=== PATIENT | male | born 1980 | race Caucasian/White ===

== ENCOUNTER 2016-12-20 15:10 | Emergency (ER) | payer MEDICARE ==
[~2016-12-20] VITALS: Ht 170.2 cm; Wt 72.5 kg
[2016-12-20] MEDS ORDERED: ChlordiazePOXIDE HCL 25 MG CAPSULE PO ONE (20:00)
[2016-12-20] MEDS ORDERED: ONDANSETRON HCL 4 MG TABLET PO ONE (21:45)
[2016-12-20 21:53] VITALS: BP 139/59
== END 2016-12-20 22:10 | disposition home or self-care (01) ==
LOC: EMS 15:29
DX: F10.10 Alcohol abuse, uncomplicated (principal); F41.9 Anxiety disorder, unspecified; F17.210 Nicotine dependence, cigarettes, uncomplicated; Y90.9 Presence of alcohol in blood, level not specified
CPT/HCPCS: 99284; Q0162